=== PATIENT | male | born 1960 | race Caucasian/White ===

== ENCOUNTER 2018-09-28 17:08 | Emergency (ER) | payer MEDICAID, OTHER ==
[~2018-09-28] VITALS: Ht 177.8 cm; Wt 110.0 kg
[~2018-09-28 17:08] MED LIST: GABA300C16 PO; LOSA25TA2 PO; TRAM100T8 PO; metoprolol PO
[2018-09-28 17:11] VITALS: Ht 177.8 cm; Wt 110.0 kg
[2018-09-28] MEDS ORDERED: TRAM50TA2 PO (18:25)
[2018-09-28 18:48] VITALS: BP 166/90; PULSE 79; RESP 18
--- NOTE | 2018-09-28 22:45 | ERD ---
ER Documentation Chief Complaint Chief Complaint pt bib self with c/o pain for arm, legs, feet x 1 month HPI 58-year-old male patient with a past medical history of diabetes presents the ED complaining of bilateral leg pain that started intimately for 1 month. Patient reports that he feels some numbness and tingling of his bilateral feet. States that he takes metformin. Reports that he has not taking any pain medications. Denies any fever, chills, vomiting, diarrhea, abdominal pain, chest pain, shortness of breath. ROS All systems reviewed and are negative except as per history of present illness. Medications Home Meds Active Scripts Tramadol HCl (Tramadol HCl) 50 Mg Tablet, 50 MG PO Q6 PRN for PAIN, #20 TAB Prov:MERARY WINTER PA-C 09/28/18 Reported Medications Losartan Potassium* (Cozaar*) 25 Mg Tablet, 1 TAB PO DAILY 08/28/13 [metoprolol] No Conflict Check, 1 TAB PO BID, 0 Refills patient thinks it is 50mg daily 04/23/13 Gabapentin* (Gabapentin*) 300 Mg Capsule, 300 MG PO TID 04/23/13 Tramadol Hcl* (Ultram* ER) 100 Mg Tab.sr.24h, 100 MG PO TID 04/23/13 Allergies Allergies: Coded Allergies: Sulfamethoxazole (Verified Allergy, Mild, 09/04/13) trimethoprim (Verified Allergy, Mild, 09/04/13) PMhx/Soc History of Surgery: No Anesthesia Reaction: No Hx Neurological Disorder: No Hx Respiratory Disorders: No Hx Cardiac Disorders: Yes (HTN) Hx Psychiatric Problems: No Hx Miscellaneous Medical Probl: Yes (DM) Hx Alcohol Use: Yes Hx Substance Use: No Hx Tobacco Use: Yes Smoking Status: Current every day smoker FmHx Family History: No diabetes, No coronary disease Physical Exam Vitals Vital Signs Date Temp Pulse Resp B/P (MAP) Pulse Ox O2 O2 Flow FiO2 Time Delivery Rate 09/28/18 97.1 79 18 166/90 97 Room Air 18:48 (115) 09/28/18 97.1 94 18 172/96 98 17:11 (121) Physical Exam Const: [id number], well-nourished. In no acute distress. Head: Atraumatic, normocephalic Eyes: Normal Conjunctiva without injection ENT: Normal external ear, nose and mouth. Neck: Full range of motion. No meningismus. Resp: Clear to auscultation bilaterally. No wheezing, rhonchi, rales, or crackles. No accessory muscle use. No retractions. Cardio: Regular rate and rhythm, no murmurs Skin: No petechiae or rashes Back: No midline tenderness. No CVA tenderness. Ext: No cyanosis, or edema. Cap refill less than 2 seconds. Distal pulses intact bilaterally. Neur: Awake and alert. Normal gait and coordination. Muscle strength 5/5. Sensation intact bilaterally. Psych: Normal Mood and Affect Procedures/MDM 58-year-old male patient with a past medical history of diabetes presents to ED complaining of bilateral feet pain. Patient is afebrile and nontoxic-appearing. Blood Pressure Assessment: Patient's blood pressure was elevated (>120/80) but appears stable without evidence of hypertension emergency or urgency. The patient was counseled about the risks of hypertension and urged to pursue outpatient monitoring and therapy within a week with their primary care physician. Patient likely is experiencing diabetic neuropathy. This was discussed with my supervising physician, Dr. Ku who agreed with the outpatient management. Homeless shelters were also given to patient as resources. Patient is placed in a Splint Assessment: Neurovascularly intact pre and post splint placement with good fit. Patient's extremity symptoms have stabilized while they have been evaluated in the department and are appropriate for outpatient follow up. No evidence of fractures, dislocations, compartment syndrome, neurologic injury, vascular injury, open joint, open fracture, tendon laceration, septic arthritis, osteomyelitis, DVT, foreign body, or other emergent conditions. Diagnosis: Bilateral Leg and Foot Pain Discharge medications: Tramadol Follow up with primary care physician in 1-2 days. Instructed patient to return to the ED sooner for any worsening symptoms. Patient's questions were answered. Patient is hemodynamically stable. Patient understood and agreed with discharge plan. Patient discharged stable. Disclaimer: Inadvertent spelling and grammatical errors are likely due to EHR/dictation software use and do not reflect on the overall quality of patient care. Also, please note that the electronic time recorded on this note does not necessarily reflect the actual time of the patient encounter. Departure Diagnosis: Primary Impression: Bilateral leg and foot pain Condition: Stable Patient Instructions: What Is Peripheral Neuropathy?, Possible Causes of Low Back or Leg Pain, Diabetic Foot Care Referrals: [facility] YOU HAVE RECEIVED A MEDICAL SCREENING EXAM AND THE RESULTS INDICATE THAT YOU DO NOT HAVE A CONDITION THAT REQUIRES URGENT TREATMENT IN THE EMERGENCY DEPARTMENT. FURTHER EVALUATION AND TREATMENT OF YOUR CONDITION CAN WAIT UNTIL YOU ARE SEEN IN YOUR DOCTORS OFFICE WITHIN THE NEXT 1-2 DAYS. IT IS YOUR RESPONSIBILITY TO MAKE AN APPOINTMENT FOR FOLOW-UP CARE. IF YOU HAVE A PRIMARY DOCTOR --you should call your primary doctor and schedule an appointment IF YOU DO NOT HAVE A PRIMARY DOCTOR YOU CAN CALL OUR PHYSICIAN REFERRAL HOTLINE AT IF YOU CAN NOT AFFORD TO SEE A PHYSICIAN YOU CAN CHOSE FROM THE FOLLOWING [facility] [address] [facility]. [facility] [address] [facility] [address] [facility] [address] [facility]. [facility] [address] [facility]. [facility] [address] [facility]. [facility] YOU HAVE RECEIVED A MEDICAL SCREENING EXAM AND THE RESULTS INDICATE THAT YOU DO NOT HAVE A CONDITION THAT REQUIRES URGENT TREATMENT IN THE EMERGENCY DEPARTMENT. FURTHER EVALUATION AND TREATMENT OF YOUR CONDITION CAN WAIT UNTIL YOU ARE SEEN IN YOUR DOCTORS OFFICE WITHIN THE NEXT 1-2 DAYS. IT IS YOUR RESPONSIBILITY TO MAKE AN APPOINTMENT FOR FOLOW-UP CARE. IF YOU HAVE A PRIMARY DOCTOR --you should call your primary doctor and schedule and appointment IF YOU DO NOT HAVE A PRIMARY DOCTOR YOU CAN CALL OUR PHYSICIAN REFERRAL HOTLINE AT . IF YOU CAN NOT AFFORD TO SEE A PHYSICIAN YOU CAN CHOSE FROM THE FOLLOWING [facility] INSTITUTIONS: [facility] [address] [place] [address] [facility] [address] [place] [address] [facility] [address] [place] [address] [facility] URGENT CARE/SPECIALTIES Additional Instructions: Call your primary care doctor TOMORROW for an appointment during the next 2-3 days for a referral to see a transportation broker.See the doctor sooner or return here if your condition worsens before your appointment time. MERARY WINTER PA-C Sep 28, 2018 22:45
== END 2018-09-28 18:49 | disposition home or self-care (01) ==
LOC: FTE 17:08
DX: M25.572 Pain in left ankle and joints of left foot (principal); M25.571 Pain in right ankle and joints of right foot; M79.605 Pain in left leg; M79.604 Pain in right leg; E11.9 Type 2 diabetes mellitus without complications; I10 Essential (primary) hypertension; F17.210 Nicotine dependence, cigarettes, uncomplicated
CPT/HCPCS: 99283

== ENCOUNTER 2019-03-23 11:51 | Emergency (ER) | payer MEDICAID ==
[~2019-03-23] VITALS: Ht 177.8 cm; Wt 110.0 kg
[~2019-03-23 11:51] MED LIST changes: +TRAM50TA2 PO
[2019-03-23 11:56] VITALS: Ht 177.8 cm; Wt 110.0 kg
[2019-03-23] MEDS ORDERED: SODIUM CHLORIDE 0.9% 1L BAG IV* STA (12:29)
[2019-03-23] MEDS ORDERED: KETOROLAC 30 MG INJ IV STA (12:29)
[2019-03-23] MEDS ORDERED: CLINDAMYCIN 900 MG/D5W (PMX) 50 ML IVPB STA (12:29)
[2019-03-23] MEDS ORDERED: DIPHTH/TET/ACEL PERTUSS (ADULT) 0.5 ML VIAL IM* ONE (13:00)
[2019-03-23] MEDS ORDERED: CLIN300C10 PO (14:31)
[2019-03-23] MEDS ORDERED: HYDR-4011 PO (14:31)
[2019-03-23] MEDS ORDERED: IBUP-1542 PO (14:31)
[2019-03-23 14:35] VITALS: BP 119/72; PULSE 62; RESP 20
--- NOTE | 2019-03-23 14:41 | ERD ---
ER Documentation Chief Complaint Chief Complaint RIGHT FOOT/LEG SWELLING AND REDNESS HPI 58-year-old male presents with right and left lower extremity redness and pain. Denies any history of trauma. It may have started in his rossa or foot. Denies any measured fevers although may have had chills. Denies any cough, shortness of breath, abdominal pain. He did vomit 1 times nonbilious nonbloody. Patient has a history of diabetes and hypertension. ROS All systems reviewed and are negative except as per history of present illness. Medications Home Meds Active Scripts Hydrocodone/Acetaminophen ([place] 5-325 Tablet) 1 Each Tablet, 1 TAB PO Q6H PRN for PAIN, #10 TAB Prov:MARCELINO ALVAREZ MD 03/23/19 Ibuprofen* (Motrin*) 600 Mg Tab, 600 MG PO Q6, #15 TAB Prov:MARCELINO ALVAREZ MD 03/23/19 Clindamycin Hcl* (Clindamycin Hcl*) 300 Mg Capsule, 300 MG PO Q6 for 7 Days, CAP Prov:MARCELINO ALVAREZ MD 03/23/19 Tramadol HCl (Tramadol HCl) 50 Mg Tablet, 50 MG PO Q6 PRN for PAIN, #20 TAB Prov:MERARY WINTER PA-C 09/28/18 Reported Medications Losartan Potassium* (Cozaar*) 25 Mg Tablet, 1 TAB PO DAILY 08/28/13 [metoprolol] No Conflict Check, 1 TAB PO BID, 0 Refills patient thinks it is 50mg daily 04/23/13 Gabapentin* (Gabapentin*) 300 Mg Capsule, 300 MG PO TID 04/23/13 Tramadol Hcl* (Ultram* ER) 100 Mg Tab.sr.24h, 100 MG PO TID 04/23/13 Allergies Allergies: Coded Allergies: Sulfamethoxazole (Verified Allergy, Mild, 09/04/13) trimethoprim (Verified Allergy, Mild, 09/04/13) PMhx/Soc History of Surgery: No Anesthesia Reaction: No Hx Neurological Disorder: No Hx Respiratory Disorders: No Hx Cardiac Disorders: Yes (HTN) Hx Psychiatric Problems: No Hx Miscellaneous Medical Probl: Yes (DM) Hx Alcohol Use: Yes Hx Substance Use: No Hx Tobacco Use: Yes Smoking Status: Current every day smoker FmHx Family History: No diabetes, No coronary disease, No other Physical Exam Vitals Vital Signs Date Temp Pulse Resp B/P (MAP) Pulse Ox O2 O2 Flow FiO2 Time Delivery Rate 03/23/19 97.1 62 20 119/72 99 Room Air 14:35 (88) 03/23/19 97.8 84 18 157/99 99 11:56 (118) Physical Exam Const: No acute distress Head: Atraumatic Eyes: Normal Conjunctiva ENT: Normal External Ears, Nose and Mouth. Neck: Full range of motion. No meningismus. Resp: Clear to auscultation bilaterally Cardio: Regular rate and rhythm, no murmurs Abd: Soft, non tender, non distended. Normal bowel sounds Skin: No petechiae or rashes Back: No midline or flank tenderness Ext: No cyanosis, or edema. Slight amount of redness and tenderness in the right anterior rosas and dorsum of the right foot. There is some maceration of the toes consistent with patient walking a lot possibly with out socks. Patient has chronic deformities of the right first metatarsal phalangeal joint area and hammertoe of the left second toe. No deficits or weakness and cap refill less than 2 seconds. Neur: Awake and alert Psych: Normal Mood and Affect Result Diagram: 03/23/19 1236 03/23/19 1236 Results 24 hrs Laboratory Tests Test 03/23/19 12:36 03/23/19 12:37 03/23/19 12:52 White Blood Count 7.9 10^3/ul Red Blood Count 4.42 10^6/ul Hemoglobin 14.5 g/dl Hematocrit 43.5 % Mean Corpuscular Volume 98.4 fl Mean Corpuscular Hemoglobin 32.8 pg Mean Corpuscular 33.3 g/dl Hemoglobin Concent Red Cell Distribution Width 12.2 % Platelet Count 196 10^3/UL Mean Platelet Volume 9.3 fl Immature Granulocytes % 0.300 % Neutrophils % 65.9 % Lymphocytes % 23.3 % Monocytes % 7.3 % Eosinophils % 2.2 % Basophils % 1.0 % Nucleated Red Blood Cells % 0.0 /100WBC Immature Granulocytes # 0.020 10^3/ul Neutrophils # 5.2 10^3/ul Lymphocytes # 1.8 10^3/ul Monocytes # 0.6 10^3/ul Eosinophils # 0.2 10^3/ul Basophils # 0.1 10^3/ul Nucleated Red Blood Cells # 0.0 10^3/ul Sodium Level 140 mmol/L Potassium Level 4.2 mmol/L Chloride Level 102 mmol/L Carbon Dioxide Level 31 mmol/L Anion Gap 7 Blood Urea Nitrogen 18 mg/dl Creatinine 0.83 mg/dl Est Glomerular Filtrat Rate mL/min > 60 mL/min Glucose Level 103 mg/dl Calcium Level 9.4 mg/dl Total Bilirubin 0.5 mg/dl Direct Bilirubin 0.00 mg/dl Indirect Bilirubin 0.5 mg/dl Aspartate Amino Transf (AST/SGOT) 100 IU/L Alanine 136 IU/L Aminotransferase (ALT/SGPT) Alkaline Phosphatase 58 IU/L Total Protein 8.0 g/dl Albumin 3.9 g/dl Globulin 4.10 g/dl Albumin/Globulin Ratio 0.95 Lactic Acid Level 1.3 mmol/L POC Venous Lactate 1.1 mmol/L Current Medications Medications Dose Sig/Hamzah Start Time Status Last (Trade) Ordered Route PRN Stop Time Admin Dose Reason Admin Sodium 3,300 ml BOLUS OVER 2 03/23/19 DC 03/23/19 Chloride HOURS STAT 12:29 12:56 (NS) IV* 03/23/19 12:32 Clindamycin 50 ml @ 50 ONCE STAT 03/23/19 DC 03/23/19 HCl/ mls/hr IVPB 12:29 12:56 Dextrose 03/23/19 13:28 Ketorolac 30 mg ONCE STAT 03/23/19 DC 03/23/19 Tromethamine IV 12:29 12:57 (Toradol) 03/23/19 12:32 Diphtheria/ 0.5 ml ONCE ONCE 03/23/19 DC 03/23/19 Tetanus/Acell IM* 13:00 12:57 Pertussis 03/23/19 13:01 (Adacel) Procedures/MDM CBC shows no leukocytosis. CMP shows no acute abnormality except mild transaminitis. Initial lactate less than 2. Culture pending. Patient was given clindamycin 900 mg IV and 30 cc/kg normal saline IV. X-ray lateral foot 3V Interpreted by me: Bones: No fracture Joints: No dislocation Foreign body: None impression-chronic deformities of the right first metatarsal phalangeal joint area, second phalanges without signs osteomyelitis, acute abnormalities. She was given Toradol 30 mg IV as well. Patient presents with appears to be early cellulitis of the bilateral extremities right greater than left. He does not meet SIRS criteria is no signs of leukocytosis is well-appearing otherwise. He will be treated with a short course of [place] less than 5-day supply for acute pain, clindamycin, recommendations for elevation and recheck in 2 days for worsening redness, fevers, new worsening symptoms. The patient was stable with no new complaints during the ER course. Clinically, there is no current evidence to suggest meningitis, sepsis, acute abdomen, pneumonia, stroke, acute coronary syndrome, pulmonary embolism, aortic dissection or any other emergent condition appearing to require further evaluation or hospitalization. Patient counseled regarding my diagnostic impression and care plan. Prior to discharge all questions answered. Pt agrees with treatment plan and understands strict return precautions. Pt is instructed to follow up with primary care provider within 24-48 hours. Precautionary instructions provided including instructions to return to the ER if not improving or for any worsening or changing symptoms or concerns. Cures review demonstrates one prescription of tramadol 6 months ago. Disclaimer: Inadvertent spelling and grammatical errors are likely due to EHR/dictation software use and do not reflect on the overall quality of patient care. Also, please note that the electronic time recorded on this note does not necessarily reflect the actual time of the patient encounter. Departure Diagnosis: Primary Impression: Cellulitis Site of cellulitis: extremity Site of cellulitis of extremity: lower extremity Laterality: unspecified laterality Qualified Codes: L03.119 - Cellulitis of unspecified part of limb Condition: Stable Patient Instructions: Cellulitis Additional Instructions: Elevate extremities at home. Recheck for worsening redness, fevers in the next day. See primary doctor this week for follow-up. MARCELINO ALVAREZ MD Mar 23, 2019 14:41
== END 2019-03-23 14:50 | disposition home or self-care (01) ==
LOC: FTE 11:51
DX: L03.115 Cellulitis of right lower limb (principal); I10 Essential (primary) hypertension; E11.9 Type 2 diabetes mellitus without complications; F17.200 Nicotine dependence, unspecified, uncomplicated
CPT/HCPCS: 36415; 73630; 80053; 83605; 85025; 87040; 90471; 90715; 96361; 96365; 96375; J1885; J7030; Z7502; Z7610

== ENCOUNTER 2019-04-03 14:31 | Emergency (ER) | payer MEDICAID ==
[~2019-04-03] VITALS: Ht 177.8 cm; Wt 104.7 kg
[~2019-04-03 14:31] MED LIST changes: +ACET500C5 PO; +CLIN300C10 PO; +HYDR-4011 PO; +IBUP-1542 PO; +IBUP800T48 PO
[2019-04-03 14:46] VITALS: Ht 177.8 cm; Wt 104.7 kg
--- NOTE | 2019-04-03 15:18 | EN ---
Date/Time of Note Date/Time of Note DATE: 04/03/19 TIME: 15:17 ER Progress Note 58-year-old male with history of diabetes and hypertension presents for right foot pain x1 week. He states that he was here about a week ago was treated for cellulitis however the pain and swelling has not improved. Medical screening exam initiated and lab/imaging tests ordered. Patient will be seen by another provider. MUMTAZ ANDREW DO Apr 03, 2019 15:18
[2019-04-03] MEDS ORDERED: KETOROLAC 30 MG INJ IM STA (16:29)
--- NOTE | 2019-04-03 16:41 | ERD ---
ER Documentation Chief Complaint Chief Complaint right foot pain x 2 days. recently tx for cellulits to the same area HPI 58-year-old male with diabetes type 2, hep C who presents with complaint of persistent right foot greater toe pain over the past 2 days. Patient recently treated for cellulitis of same area completing course of antibiotics today. States he still having a little bit of pain and swelling. Has been taking Boyd which helped but he ran out. He otherwise denies fevers, chills, discharge from area, significant difficulty ambulating, chest pain, shortness of breath, dyspnea, nausea, nausea vomiting, diarrhea, abdominal pain. At time of evaluation patient nontoxic-appearing with normal triage vital signs, afebrile. Patient seen in ED 3 triage x-ray of foot ordered as well as labs ROS All systems reviewed and are negative except as per history of present illness. Medications Home Meds Active Scripts Hydrocodone/Acetaminophen (Boyd 5-325 Tablet) 1 Each Tablet, 1 TAB PO Q6H PRN for PAIN, #10 TAB Prov:VALDEZ BUTTS PA-C 04/03/19 Acetaminophen* (Tylophen*) 500 Mg Capsule, 1 CAP PO Q6H PRN for PAIN AND OR ELEVATED TEMP, #20 CAP Prov:VALDEZ BUTTS PA-C 04/03/19 Hydrocodone/Acetaminophen (Boyd 5-325 Tablet) 1 Each Tablet, 1 TAB PO Q6H PRN for PAIN, #10 TAB Prov:MARCELINO ALVAREZ MD 03/23/19 Ibuprofen* (Motrin*) 600 Mg Tab, 600 MG PO Q6, #15 TAB Prov:MARCELINO ALVAREZ MD 03/23/19 Clindamycin Hcl* (Clindamycin Hcl*) 300 Mg Capsule, 300 MG PO Q6 for 7 Days, CAP Prov:MARCELINO ALVAREZ MD 03/23/19 Tramadol HCl (Tramadol HCl) 50 Mg Tablet, 50 MG PO Q6 PRN for PAIN, #20 TAB Prov:MERARY WINTER PA-C 09/28/18 Reported Medications Losartan Potassium* (Cozaar*) 25 Mg Tablet, 1 TAB PO DAILY 08/28/13 [metoprolol] No Conflict Check, 1 TAB PO BID, 0 Refills patient thinks it is 50mg daily 04/23/13 Gabapentin* (Gabapentin*) 300 Mg Capsule, 300 MG PO TID 04/23/13 Tramadol Hcl* (Ultram* ER) 100 Mg Tab.sr.24h, 100 MG PO TID 04/23/13 Allergies Allergies: Coded Allergies: sulfamethoxazole (Verified Allergy, Mild, 04/03/19) trimethoprim (Verified Allergy, Mild, 04/03/19) PMhx/Soc History of Surgery: No Anesthesia Reaction: No Hx Neurological Disorder: No Hx Respiratory Disorders: No Hx Cardiac Disorders: Yes (HTN) Hx Psychiatric Problems: No Hx Miscellaneous Medical Probl: Yes (DM) Hx Alcohol Use: Yes Hx Substance Use: No Hx Tobacco Use: Yes Smoking Status: Current every day smoker FmHx Family History: diabetes; No coronary disease, No other Physical Exam Vitals Vital Signs Date Temp Pulse Resp B/P (MAP) Pulse Ox O2 O2 Flow FiO2 Time Delivery Rate 04/03/19 97.9 88 18 136/88 97 14:46 (104) Physical Exam Const: No acute distress Head: Atraumatic Eyes: Normal Conjunctiva ENT: Normal External Ears, Nose and Mouth. Neck: Full range of motion. No meningismus. Resp: Clear to auscultation bilaterally Cardio: Regular rate and rhythm, no murmurs Abd: Soft, non tender, non distended. Normal bowel sounds Skin: No petechiae or rashes Back: No midline or flank tenderness Ext: Right great toe mild edema, tender to touch no erythema, areas of subdermal collection, moves all toes without issue, SI LT throughout Neur: Awake and alert Psych: Normal Mood and Affect Result Diagram: 04/03/19 1614 04/03/19 1614 Results 24 hrs Laboratory Tests Test 04/03/19 16:14 White Blood Count 9.1 10^3/ul Red Blood Count 4.55 10^6/ul Hemoglobin 14.8 g/dl Hematocrit 45.6 % Mean Corpuscular Volume 100.2 fl Mean Corpuscular Hemoglobin 32.5 pg Mean Corpuscular Hemoglobin Concent 32.5 g/dl Red Cell Distribution Width 12.5 % Platelet Count 221 10^3/UL Mean Platelet Volume 9.3 fl Immature Granulocytes % 0.500 % Neutrophils % 64.5 % Lymphocytes % 24.8 % Monocytes % 7.2 % Eosinophils % 2.0 % Basophils % 1.0 % Nucleated Red Blood Cells % 0.0 /100WBC Immature Granulocytes # 0.050 10^3/ul Neutrophils # 5.9 10^3/ul Lymphocytes # 2.3 10^3/ul Monocytes # 0.7 10^3/ul Eosinophils # 0.2 10^3/ul Basophils # 0.1 10^3/ul Nucleated Red Blood Cells # 0.0 10^3/ul Sodium Level 142 mmol/L Potassium Level 4.4 mmol/L Chloride Level 106 mmol/L Carbon Dioxide Level 28 mmol/L Anion Gap 8 Blood Urea Nitrogen 19 mg/dl Creatinine 0.84 mg/dl Est Glomerular Filtrat Rate mL/min > 60 mL/min Glucose Level 132 mg/dl Calcium Level 9.6 mg/dl Total Bilirubin 0.3 mg/dl Direct Bilirubin 0.00 mg/dl Indirect Bilirubin 0.3 mg/dl Aspartate Amino Transf (AST/SGOT) 77 IU/L Alanine Aminotransferase (ALT/SGPT) 107 IU/L Alkaline Phosphatase 59 IU/L Total Protein 8.0 g/dl Albumin 3.9 g/dl Globulin 4.10 g/dl Albumin/Globulin Ratio 0.95 Current Medications Medications Dose Sig/Hamzah Start Time Status Last (Trade) Ordered Route PRN Stop Time Admin Dose Reason Admin Ketorolac 30 mg ONCE STAT 04/03/19 DC 04/03/19 Tromethamine IM 16:29 16:39 (Toradol) 04/03/19 16:31 Procedures/MDM 58-year-old male who presents with complaint of right great toe pain. Patient recently treated for cellulitis of affected area. He does not have any fevers, labs including white blood cell count within normal limits. X-ray unremarkable for deeper infection. Will discharge with additional pain medication and advised patient to follow-up with appropriate providers. Low suspicion for any acute process warranting further emergent care work-up at this time. DISPOSITION PLAN: We discussed follow up with the patient's primary care doctor within 24 to 48 hours. Patient counseled regarding my diagnostic impression and care plan. Prior to discharge all questions answered. Pt agrees with treatment plan and understands strict return precautions. Precautionary instructions provided including instructions to return to the ER if not improving or for any worsening or changing symptoms or concerns. Disclaimer: Inadvertent spelling and grammatical errors are likely due to EHR/dictation software use and do not reflect on the overall quality of patient care. Also, please note that the electronic time recorded on this note does not necessarily reflect the actual time of the patient encounter. Departure Condition: Stable VALDEZ BUTTS PA-C Apr 03, 2019 16:41
[2019-04-03 18:07] VITALS: BP 131/85; PULSE 73; RESP 16
== END 2019-04-03 18:08 | disposition home or self-care (01) ==
LOC: E/R 14:31 → FTE 18:08
DX: M79.674 Pain in right toe(s) (principal); I10 Essential (primary) hypertension; E11.9 Type 2 diabetes mellitus without complications; F17.210 Nicotine dependence, cigarettes, uncomplicated
CPT/HCPCS: 73630; 80053; 85025; 96372; J1885; Z7502

== ENCOUNTER 2019-04-24 17:20 | Emergency (ER) | payer MEDICAID ==
[~2019-04-24] VITALS: Ht 177.8 cm; Wt 106.8 kg
[2019-04-24 17:32] VITALS: Ht 177.8 cm; Wt 106.8 kg
[2019-04-24] MEDS ORDERED: CLINDAMYCIN 900 MG INJ IM ONE (20:00)
[2019-04-24] MEDS ORDERED: HYDROCODONE/APAP (10/325) TAB PO ONE (20:00)
[2019-04-24 21:28] VITALS: BP 117/81; PULSE 75; RESP 11
--- NOTE | 2019-04-24 21:29 | ERD ---
ER Documentation Chief Complaint Chief Complaint pain/swelling in R leg x1 month, recently admitted for same HPI 58-year-old male with history of diabetes presenting with right leg pain, redness, and swelling for the past 1 week. He was here recently about 2 weeks ago and received antibiotics but he took for 7 days. He saw some improvement but not complete resolution of his symptoms. After that his symptoms started progressively worsened. Denies any associated fevers or chills. Pain is 7/10, throbbing and aching, radiating up into his right calf. Worse with walking. No alleviating factors. ROS All systems reviewed and are negative except as per history of present illness. Medications Home Meds Active Scripts Ibuprofen* (Motrin*) 800 Mg Tab, 800 MG PO Q6H PRN for PAIN AND OR ELEVATED TEMP, #30 TAB Prov:LEXIE CONWAY MD 04/24/19 Clindamycin Hcl* (Clindamycin Hcl*) 300 Mg Capsule, 300 MG PO TID for 10 Days, CAP Prov:LEXIE CONWAY MD 04/24/19 Hydrocodone/Acetaminophen ([place] 5-325 Tablet) 1 Each Tablet, 1 TAB PO Q6H PRN for PAIN, #10 TAB Prov:VALDEZ BUTTS PA-C 04/03/19 Acetaminophen* (Tylophen*) 500 Mg Capsule, 1 CAP PO Q6H PRN for PAIN AND OR ELEVATED TEMP, #20 CAP Prov:VALDEZ BUTTS PA-C 04/03/19 Hydrocodone/Acetaminophen ([place] 5-325 Tablet) 1 Each Tablet, 1 TAB PO Q6H PRN for PAIN, #10 TAB Prov:MARCELINO ALVAREZ MD 03/23/19 Ibuprofen* (Motrin*) 600 Mg Tab, 600 MG PO Q6, #15 TAB Prov:MARCELINO ALVAREZ MD 03/23/19 Clindamycin Hcl* (Clindamycin Hcl*) 300 Mg Capsule, 300 MG PO Q6 for 7 Days, CAP Prov:MARCELINO ALVAREZ MD 03/23/19 Tramadol HCl (Tramadol HCl) 50 Mg Tablet, 50 MG PO Q6 PRN for PAIN, #20 TAB Prov:MERARY WINTER PA-C 09/28/18 Reported Medications Losartan Potassium* (Cozaar*) 25 Mg Tablet, 1 TAB PO DAILY 08/28/13 [metoprolol] No Conflict Check, 1 TAB PO BID, 0 Refills patient thinks it is 50mg daily 04/23/13 Gabapentin* (Gabapentin*) 300 Mg Capsule, 300 MG PO TID 04/23/13 Tramadol Hcl* (Ultram* ER) 100 Mg Tab.sr.24h, 100 MG PO TID 04/23/13 Allergies Allergies: Coded Allergies: sulfamethoxazole (Verified Allergy, Mild, 04/03/19) trimethoprim (Verified Allergy, Mild, 04/03/19) PMhx/Soc History of Surgery: Yes (RIGHT FOOT, LEFT KNEE) Anesthesia Reaction: No Hx Neurological Disorder: No Hx Respiratory Disorders: No Hx Cardiac Disorders: Yes (HTN) Hx Psychiatric Problems: No Hx Miscellaneous Medical Probl: Yes (DM) Hx Alcohol Use: No Hx Substance Use: Yes Hx Tobacco Use: Yes Smoking Status: Current every day smoker FmHx Family History: diabetes Physical Exam Vitals Vital Signs Date Temp Pulse Resp B/P (MAP) Pulse Ox O2 O2 Flow FiO2 Time Delivery Rate 04/24/19 75 11 117/81 99 Room Air 21:28 (93) 04/24/19 76 14 113/77 96 Room Air 20:58 (89) 04/24/19 97.5 87 16 111/82 97 17:32 (92) Physical Exam Const: No acute distress Head: Atraumatic Eyes: Normal Conjunctiva ENT: Normal External Ears, Nose and Mouth. Neck: Full range of motion. No meningismus. Resp: Clear to auscultation bilaterally Cardio: Regular rate and rhythm, no murmurs Abd: Soft, non tender, non distended. Normal bowel sounds Skin: No petechiae or rashes Back: No midline or flank tenderness Ext: Right lower extremity with cellulitis of the right big toe that extends over the foot and up to the mid calf with calf tenderness on palpation. Compartments are soft. Diffuse tenderness to palpation in the area of erythema, slight warmth. 2+ DP and PT pulses. No open wounds noted. Neur: Awake and alert Psych: Normal Mood and Affect Result Diagram: 04/24/19192004/24/191920 Results 24 hrs Laboratory Tests Test 04/24/19 19:21 White Blood Count 7.2 10^3/ul Red Blood Count 4.60 10^6/ul Hemoglobin 15.2 g/dl Hematocrit 46.4 % Mean Corpuscular Volume 100.9 fl Mean Corpuscular Hemoglobin 33.0 pg Mean Corpuscular Hemoglobin Concent 32.8 g/dl Red Cell Distribution Width 12.4 % Platelet Count 196 10^3/UL Mean Platelet Volume 10.1 fl Immature Granulocytes % 0.300 % Neutrophils % 60.8 % Lymphocytes % 24.3 % Monocytes % 10.1 % Eosinophils % 3.5 % Basophils % 1.0 % Nucleated Red Blood Cells % 0.0 /100WBC Immature Granulocytes # 0.020 10^3/ul Neutrophils # 4.4 10^3/ul Lymphocytes # 1.8 10^3/ul Monocytes # 0.7 10^3/ul Eosinophils # 0.3 10^3/ul Basophils # 0.1 10^3/ul Nucleated Red Blood Cells # 0.0 10^3/ul Erythrocyte Sedimentation Rate 10 mm/Hr Sodium Level 138 mmol/L Potassium Level 4.3 mmol/L Chloride Level 99 mmol/L Carbon Dioxide Level 32 mmol/L Anion Gap 7 Blood Urea Nitrogen 18 mg/dl Creatinine 0.78 mg/dl Est Glomerular Filtrat Rate mL/min > 60 mL/min Glucose Level 101 mg/dl Calcium Level 9.4 mg/dl C-Reactive Protein 1.8 mg/dl Current Medications Medications Dose Sig/Hamzah Start Time Status Last (Trade) Ordered Route PRN Stop Time Admin Dose Reason Admin 1 tab ONCE ONCE 04/24/19 DC 04/24/19 Acetaminophen PO 20:00 20:08 / 04/24/19 20:01 Hydrocodone Bitart ([place] ()) Clindamycin 900 mg ONCE ONCE 04/24/19 DC 04/24/19 Phosphate IM 20:00 20:25 (Cleocin) 04/24/19 20:01 Procedures/MDM EMERGENT LABS AND DIAGNOSTIC STUDIES: Lab Results above were reviewed and interpreted by me. 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 No bony changes to suggest osteomyelitis. If clinical concern for infection remains, pre and post contrast MRI can be performed. Venous ultrasound of the right lower extremity shows no evidence of DVT per my review of images Initial Nursing notes reviewed. Previous Medical Records requested via the Electronic Health Record. EMERGENCY DEPARTMENT COURSE / MEDICAL DECISION MAKING: Patient is presenting with recurrent right lower extremity cellulitis. He is afebrile with no signs of sepsis. Labs are notable for mildly elevated CRP, which is appropriate in the setting of infection. I have a low suspicion for osteomyelitis or septic joint. Low suspicion for necrotizing fasciitis. No evidence of compartment syndrome. Patient will be treated with a longer course of clindamycin for 10 days and advised to follow-up with his PCP if he is not improving as expected or he may return to the ER in 24 to 48 hours if not improving. Patient's blood pressure was elevated (>120/80) but appears stable without evidence of hypertensive emergency or urgency. The patient was counseled about the risks of hypertension and urged to pursue outpatient monitoring and therapy within a week with their primary care physician. Departure Diagnosis: Primary Impression: Cellulitis of right lower leg Condition: Stable Patient Instructions: Cellulitis Referrals: COMMUNITY CLINICS YOU HAVE RECEIVED A MEDICAL SCREENING EXAM AND THE RESULTS INDICATE THAT YOU DO NOT HAVE A CONDITION THAT REQUIRES URGENT TREATMENT IN THE EMERGENCY DEPARTMENT. FURTHER EVALUATION AND TREATMENT OF YOUR CONDITION CAN WAIT UNTIL YOU ARE SEEN IN YOUR DOCTORS OFFICE WITHIN THE NEXT 1-2 DAYS. IT IS YOUR RESPONSIBILITY TO MAKE AN APPOINTMENT FOR FOLOW-UP CARE. IF YOU HAVE A PRIMARY DOCTOR --you should call your primary doctor and schedule an appointment IF YOU DO NOT HAVE A PRIMARY DOCTOR YOU CAN CALL OUR PHYSICIAN REFERRAL HOTLINE AT IF YOU CAN NOT AFFORD TO SEE A PHYSICIAN YOU CAN CHOSE FROM THE FOLLOWING [facility] CL[facility] [address] [facility] [address] [facility] [facility] [address] [facility] [address] [facility] [facility] [address] [facility]. [facility] [address] Additional Instructions: Call your primary care doctor TOMORROW for an appointment during the next 1-2 days.See the doctor sooner or return here if your condition worsens before your appointment time. LEXIE CONWAY MD Apr 24, 2019 21:29
== END 2019-04-24 21:43 | disposition home or self-care (01) ==
LOC: E/R 17:20
DX: L03.115 Cellulitis of right lower limb (principal); I10 Essential (primary) hypertension; E11.9 Type 2 diabetes mellitus without complications; F17.210 Nicotine dependence, cigarettes, uncomplicated
CPT/HCPCS: 73630; 80048; 85025; 85651; 86140; 93971; 96372; S0077; Z7502; Z7610